=== PATIENT | female | born 1985 | race Caucasian/White ===

== ENCOUNTER → 2017-04-13 18:53 | Outpatient (CLI) | payer BC, SELFPAY ==
[2017-04-13 20:52] LABS: Group B Strep DNA By PCR Negative (Negative); Internal Control PASS; Probe Check PASS; Specimen Processing Control PASS
== END ==
PROVIDERS: Visit Provider Obstetrics & Gynecology
DX: Z34.03 Encounter for supervision of normal first pregnancy, third trimester (principal)
CPT/HCPCS: 87081; 87653

== ENCOUNTER → 2017-04-27 16:10 | Outpatient (CLI) | payer BC, SELFPAY | PROVIDERS: Visit Provider Nurse Practitioner Women's Health | DX: Z34.03 Encounter for supervision of normal first pregnancy, third trimester (principal); Z3A.00 Weeks of gestation of pregnancy not specified | CPT/HCPCS: 87086 ==

== ENCOUNTER 2017-04-29 02:40 | Inpatient (IN) | payer BC, SELFPAY ==
[2017-04-29 03:24] VITALS: BMI 31.5
[2017-04-29 04:10] LABS: Hematocrit 34.9 % (37-47); Hemoglobin 11.7 g/dl (12.0-15.0); Mean Corp Hgb Conc 33.5 g/gl (32-36); Mean Corpuscular Volume 89.5 fL (81-99); Mean Platelet Vol. 10.4 fl (6.2-12.0); Platelet Count 247 K/mm3 (150-450); RBC Distribution Width CV 13.4 % (11.6-14.6); RBC Distribution Width SD 43.1 fl (35.1-43.9); White Blood Count 10.5 K/mm3 (4.4-11.0)
[2017-04-29 04:21] LABS: Scan Indicated on CBC? Y/N NO
[2017-04-29] MEDS: Lactated Ringers 1,000 ML 50 ML IV ×5 (06:56→20:12)
--- NOTE | 2017-04-29 10:58 | PCM.HP.OB ---
- Problem List (1) Active labor at term Status: Acute History Date of Admission: 04/29/17 Gestational age: 38w1d History of this : 31 yo @ 38w1d presents IAL with SROM clear fluid 2 cm dilated Pertinent Past Medical History: asthma PSH: negative Allergies clindamycin Allergy (Mild, Verified 04/29/17 03:17) Swelling swollen, itchy eyes Current Medications Acetaminophen (Tylenol) 325 - 650 mg PO Q4H PRN PRN PRN Reason: PAIN OR FEVER >100.4F Al Hydroxide/Mg Hydroxide (Mylanta Ii) 15 - 30 ml PO Q4H PRN PRN PRN Reason: INDIGESTION Citric Acid/Sodium Citrate (Bicitra) 30 ml PO UD PRN Lactated Ringer's () 1,000 mls @ 50 mls/hr IV .Q20H [facility] Last Admin: 04/29/17 07:57 Dose: 50 mls/hr Oxytocin/Sodium Chloride () 30 units in 500 mls @ 1 mls/hr IV .Q500H [facility] Naloxone HCl 4 mg/ Dextrose 504 mls @ 0 mls/hr IV PRN PRN; Protocol PRN Reason: TO MAINTAIN RR>10 Nalbuphine HCl (Nubain) 5 - 10 mg IV Q3H PRN PRN PRN Reason: PAIN (4-10/10) Nalbuphine HCl (Nubain) 5 mg IV Q3H PRN PRN Reason: ITCHING Stop: 04/30/17 10:32 Naloxone HCl (Narcan) 0.2 mg IV Q1M PRN PRN Reason: RR<10 AND PT UNRESPONSIVE Stop: 04/30/17 10:32 Ondansetron HCl (Zofran) 4 mg IV Q8H PRN PRN PRN Reason: NAUSEA Promethazine HCl (Phenergan (Ll)) 6.25 - 12.5 mg IV Q4H PRN PRN; Protocol PRN Reason: IF NAUSEA PERSISTS Sodium Chloride () 5 - 15 ml IV UD [facility] Smoking Status: Never smoker Alcohol: None Drug Use: none Number of Fetus(es): 1 - 120 moderate variability reactive no decels Review of Systems Constitutional: Denies: Chills, Fever, Weight Change HEENT: Denies: Head Aches, Sinus Congestion, Sinus Drainage Cardiovascular: Denies: Chest Pain, Palpitations Respiratory: Denies: Cough, Shortness of breath at rest, Sputum production Gastrointestinal: Reports: Abdominal Pain, Nausea. Denies: Vomiting Genitourinary: Denies: Dysuria Gynecological: Reports: Vaginal discharge Musculoskeletal: Denies: Joint Pain, Joint Tenderness Skin: Denies: Rash, Wounds Neurological: Denies: Numbness, Tingling, Focal weakness Psychiatric: Denies: Anxiety, Depression, Homicidal Ideations, Suicidal Ideations Hematologic/ Lymphatic: Denies: Easy Bruising, Easy Bleeding Physical Exam General: Alert, Oriented x3, No apparent distress Cardiovascular: Regular rate Lungs: Normal air movement Abdomen: Soft, Gravid, Appropriate for Gestational Age Extremities:: No edema Estimated gestational size: Appropriate for gestational size Presentation: Cephalic Cervix Dilation (cm): 2 Station: -2 Effacement (%): 70 Assessment/Plan Active and Suspected Problems (Last Reviewed 04/27/17 @ 08:38 by Monalisa Hendrix) Active labor at term (Acute) 31 yo 38w1d IAL SROM active labor expectant management gbs neg
--- NOTE | 2017-04-29 11:01 | HP.PCM_ITS ---
- Problem List (1) Active labor at term Status: Acute History Date of Admission: 04/29/17 Gestational age: 38w1d History of this : 31 yo @ 38w1d presents IAL with SROM clear fluid 2 cm dilated Pertinent Past Medical History: asthma PSH: negative Allergies clindamycin Allergy (Mild, Verified 04/29/17 03:17) Swelling swollen, itchy eyes Current Medications Acetaminophen (Tylenol) 325 - 650 mg PO Q4H PRN PRN PRN Reason: PAIN OR FEVER >100.4F Al Hydroxide/Mg Hydroxide (Mylanta Ii) 15 - 30 ml PO Q4H PRN PRN PRN Reason: INDIGESTION Citric Acid/Sodium Citrate (Bicitra) 30 ml PO UD PRN Lactated Ringer's () 1,000 mls @ 50 mls/hr IV .Q20H [facility] Last Admin: 04/29/17 07:57 Dose: 50 mls/hr Oxytocin/Sodium Chloride () 30 units in 500 mls @ 1 mls/hr IV .Q500H [facility] Naloxone HCl 4 mg/ Dextrose 504 mls @ 0 mls/hr IV PRN PRN; Protocol PRN Reason: TO MAINTAIN RR>10 Nalbuphine HCl (Nubain) 5 - 10 mg IV Q3H PRN PRN PRN Reason: PAIN (4-10/10) Nalbuphine HCl (Nubain) 5 mg IV Q3H PRN PRN Reason: ITCHING Stop: 04/30/17 10:32 Naloxone HCl (Narcan) 0.2 mg IV Q1M PRN PRN Reason: RR<10 AND PT UNRESPONSIVE Stop: 04/30/17 10:32 Ondansetron HCl (Zofran) 4 mg IV Q8H PRN PRN PRN Reason: NAUSEA Promethazine HCl (Phenergan (Ll)) 6.25 - 12.5 mg IV Q4H PRN PRN; Protocol PRN Reason: IF NAUSEA PERSISTS Sodium Chloride () 5 - 15 ml IV UD [facility] Smoking Status: Never smoker Alcohol: None Drug Use: none Number of Fetus(es): 1 - 120 moderate variability reactive no decels Review of Systems Constitutional: Denies: Chills, Fever, Weight Change HEENT: Denies: Head Aches, Sinus Congestion, Sinus Drainage Cardiovascular: Denies: Chest Pain, Palpitations Respiratory: Denies: Cough, Shortness of breath at rest, Sputum production Gastrointestinal: Reports: Abdominal Pain, Nausea. Denies: Vomiting Genitourinary: Denies: Dysuria Gynecological: Reports: Vaginal discharge Musculoskeletal: Denies: Joint Pain, Joint Tenderness Skin: Denies: Rash, Wounds Neurological: Denies: Numbness, Tingling, Focal weakness Psychiatric: Denies: Anxiety, Depression, Homicidal Ideations, Suicidal Ideations Hematologic/ Lymphatic: Denies: Easy Bruising, Easy Bleeding Physical Exam General: Alert, Oriented x3, No apparent distress Cardiovascular: Regular rate Lungs: Normal air movement Abdomen: Soft, Gravid, Appropriate for Gestational Age Extremities:: No edema Estimated gestational size: Appropriate for gestational size Presentation: Cephalic Cervix Dilation (cm): 2 Station: -2 Effacement (%): 70 Assessment/Plan Active and Suspected Problems (Last Reviewed 04/27/17 @ 08:38 by Monalisa Hendrix) Active labor at term (Acute) 31 yo 38w1d IAL SROM active labor expectant management gbs neg
--- NOTE | 2017-04-29 11:02 | PCM.PN.BLA ---
Progress Note fhts 120s moderate variability isoolated late decels overall reactive and reassuring. toco q 4-5 start pitocin soon due to arrest of dilation 5 cm.
[2017-04-29] MEDS: Oxytocin 30 units/NS 500 ml 30 UNITS/500 ML IV.SOLN IV (11:45)
--- NOTE | 2017-04-29 12:04 | PCM.PN.BLA ---
Progress Note fht decel x 8 minutes to the 70s with intermittent coming up to 100s. positive scalp stimulation. 120-130 minimal variability no decels now. continue expectant management
[2017-04-29] MEDS: Ondansetron 4 MG/2 ML Vial IV (15:30)
[2017-04-29] MEDS: Mag Hydrox/Al Hydrox/Simeth 30 ML UDC PO (22:05)
[2017-04-30] MEDS: Lactated Ringers 1,000 ML 50 ML IV (01:21)
[2017-04-30] MEDS: Ondansetron 4 MG/2 ML Vial IV (01:56)
[2017-04-30] MEDS: Acetaminophen 325 MG Tablet PO (02:04)
[2017-04-30] MEDS: Oxytocin 30 units/NS 500 ml 30 UNITS/500 ML IV.SOLN 334 UNITS IV (05:26)
--- NOTE | 2017-04-30 05:37 | PCM.OB.VAG ---
- Problem List (1) Active labor at term Status: Acute (2) Vaginal delivery Status: Acute Vaginal Delivery Maternal Presentation: Spontaneous Rupture of Membranes 31 yo 38w1d SROM clear fluid Amniotic Membrane Rupture Type: Spontaneous at home Amniotic Fluid Description: Clear Gestational age: 38w2d Date of Procedure: 04/30/17 Pre-Operative Diagnosis: srom Post-Operative Diagnosis: same Surgery/ Procedure Performed: Spontaneous Vaginal Delivery Type of Anesthesia: Epidural Description of Procedure: Patient began pushing and delivered the head in the BRETT presentation. The head was delivered atraumatically . The anterior and posterior shoulders delivered without complication followed by the rest of the infant and the infant was placed on the maternal abdomen. Delayed cord clamping was employed for approximately 60 seconds. Cord was clamped and cut and gentle traction was applied to the cord and the placenta delivered spontaneously immediately following it was noted to be intact with three-vessel cord. The perineum and vagina were inspected and noted to have a shallow 1st degree laceration that difdn't require repair. EBL was 400 cc. mild atony remedied with pitocin and methergine. Patient and infant tolerated delivery well. Presentation: BRETT Placental Delivery Description: Spontaneous Placenta Disposition: [facility] Cord Vessel Description: 3 Vessels Cord Entanglement: None Estimated Blood Loss: 400 A gender: Male Episiotomy Description: None Laceration: Perineal Extension/lac, 1st degree Medications given after delivery: IV Pitocin, IM Methergin Complications: None
[2017-04-30] MEDS: 0.9% Saline Lock 10 ML Syringe IV (06:00)
[2017-04-30] MEDS: Oxytocin 30 units/NS 500 ml 30 UNITS/500 ML IV.SOLN 167 UNITS IV (06:00)
[2017-04-30] MEDS: Naproxen 250 MG Tablet PO ×2 (10:00→22:59)
[2017-04-30 11:36] VITALS: BP 113/71; PULSE 89; RESP 16; TEMP 36.8; O2SAT 96
[2017-04-30 15:30] VITALS: BP 109/67; PULSE 67; RESP 16; TEMP 36.4; O2SAT 97
[2017-04-30 19:45] VITALS: BP 128/77; PULSE 84; RESP 16; TEMP 36.3; O2SAT 96
[2017-04-30 23:01] VITALS: BP 126/75; PULSE 88; RESP 16; TEMP 36.3; O2SAT 98
[2017-05-01 05:00] VITALS: BP 127/85; PULSE 78; RESP 18; TEMP 36.9; O2SAT 98
--- NOTE | 2017-05-01 07:56 | PCM.PN.OB ---
Patient Problems: Active and Suspected Problems (Last Reviewed 04/27/17 @ 08:38 by Monalisa Hendrix) Active labor at term (Acute) Vaginal delivery (Acute) Subjective: Doing well. No SOB, chest pain. No issues with bowel, bladder habits. Uterus 2 below umbilicus. Normal lochia. - Physical Exam General: Alert, Oriented x3, Cooperative Abdomen: - - Fundus firm and 2 below. Abdomen soft. Vital Signs Temp Pulse Resp BP Pulse Ox 98.4 F 78 18 127/85 H 98 05/01/17 05:00 05/01/17 05:00 05/01/17 05:00 05/01/17 05:00 05/01/17 05:00 Oxygen Delivery Method Room Air Weight: 189 lb 6.033 oz Body Mass Index (BMI) 31.5 Intake and Output for Last 24 Hours 04/29/17 04/30/17 05/01/17 23:59 23:59 23:59 Intake Total 4170 / 4170 3198 / 3198 Output Total 1000 / 1000 1800 / 1800 Balance 3170 / 3170 1398 / 1398 Assessment/Plan Active and Suspected Problems (Last Reviewed 04/27/17 @ 08:38 by Monalisa Hendrix) Active labor at term (Acute) Vaginal delivery (Acute) Status post . PPD 1. Routine PP care,
[2017-05-01 08:00] VITALS: BP 138/60; PULSE 76; RESP 16; TEMP 36.3; O2SAT 96
[2017-05-01] MEDS: Naproxen 250 MG Tablet PO ×2 (09:39→20:25)
[2017-05-01] MEDS: Dibucaine 30 GM Tube 1 APPLIC TOPICAL (09:40)
[2017-05-01 14:45] VITALS: BP 112/72; PULSE 76; RESP 16; TEMP 36.4; O2SAT 97
[2017-05-01] MEDS: Acetaminophen 500 MG Tablet 1000 MG PO (14:47)
[2017-05-01 21:20] VITALS: BP 102/71; PULSE 72; RESP 16; TEMP 36.3
[2017-05-02] MEDS: Acetaminophen 500 MG Tablet 1000 MG PO (01:44)
[2017-05-02 02:00] VITALS: BP 98/72; PULSE 80; RESP 16; TEMP 36.4
[2017-05-02 07:48] VITALS: BP 115/79; PULSE 78; RESP 16; TEMP 36.4; O2SAT 99
--- NOTE | 2017-05-02 09:33 | PCM.PN.OB ---
Patient Problems: Active and Suspected Problems (Last Reviewed 04/27/17 @ 08:38 by Monalisa Hendrix) Active labor at term (Acute) Vaginal delivery (Acute) Subjective: pain controlled n oCP SOB N V lochia WNL well - Physical Exam General: Alert, Oriented x3 Abdomen: - - FF 2 below U Vital Signs Temp Pulse Resp BP Pulse Ox 97.6 F L 78 16 115/79 99 05/02/17 07:48 05/02/17 07:48 05/02/17 07:48 05/02/17 07:48 05/02/17 07:48 Oxygen Delivery Method Room Air Weight: 189 lb 6.033 oz Body Mass Index (BMI) 31.5 Intake and Output for Last 24 Hours 04/30/17 05/01/17 05/02/17 23:59 23:59 23:59 Intake Total 3198 / 3198 Output Total 1800 / 1800 Balance 1398 / 1398 Assessment/Plan Active and Suspected Problems (Last Reviewed 04/27/17 @ 08:38 by Monalisa Hendrix) Active labor at term (Acute) Vaginal delivery (Acute) s/p PPD 2 , doing well routine care dc home today
--- NOTE | 2017-05-02 09:35 | PCM.DCVAG ---
Discharge Diet: No Restrictions Discharge Activity: Return to Normal Activity, May not drive while taking narcotic pain medications., May Shower May resume sexual activity in: 4-6 weeks Call your doctor if your incision/area has: Continuous Slow Oozing, Sudden Increased Bleeding, Increased Pain/ Swelling, Increased Redness, Foul Smelling Discharge Additional Instructions: If you experience any of the following, contact your healthcare provider. Bleeding that soaks a pad every hour for 2 hours Fever 100.4 or higher Unrelieved incision or abdominal pain Swelling, redness, discharge or bleeding from your incision or episiotomy site Your incision begins to separate Problems urinating (including inability to urinate or burning while urinating). Visual changes Severe headache Flu-like symptoms Pain or redness in one of both of your breasts Pain, warmth, tenderness or swelling in your legs, especially the calf area Frequent nausea and vomiting Symptoms of depression or anxiety If you experience any of the following, call 911 or go to the nearest Emergency Room. Chest pain Problems breathing Seizure activity Partial or complete paralysis of a body part, slurred speech, weakness or drooping of the face, or a sudden inability to walk or hold your balance Allergies/Adverse Reactions: Allergies clindamycin Allergy (Mild, Verified 04/29/17 03:17) Swelling swollen, itchy eyes Medications to take at Discharge albuterol sulfate HFA 90 mcg/actuation aerosol inhaler 1 puff INHALATION Q6H 02/13/17 cyanocobalamin (vit B-12) 50 mcg lozenges 50 mcg PO QDAY 02/13/17 magnesium oxide 400 mg capsule 400 mg PO QDAY cap 02/13/17 vitamin,calcium,gfswqbao-edcx-anyjd acid tablet 1 tab PO QDAY 02/13/17 pyridoxine (vitamin B6) 250 mg tablet 250 mg PO QDAY 02/13/17 calcium carbonate 500 mg calcium (1,250 mg) chewable tablet 500 mg PO BID tab 02/14/17 Please Follow Up With: Hillary Patricia MD - [phone] When: Call to make an appointment with your doctor in 6 weeks. If you had elevated Blood pressure or 4th degree laceration you will need to be seen in 2 weeks. Primary Care Physician: [facility] Doctor,Out of [Primary Care Provider] -
--- NOTE | 2017-05-02 09:37 | DCINST_ITS ---
Discharge Diet: No Restrictions Discharge Activity: Return to Normal Activity, May not drive while taking narcotic pain medications., May Shower May resume sexual activity in: 4-6 weeks Call your doctor if your incision/area has: Continuous Slow Oozing, Sudden Increased Bleeding, Increased Pain/ Swelling, Increased Redness, Foul Smelling Discharge Additional Instructions: If you experience any of the following, contact your healthcare provider. * Bleeding that soaks a pad every hour for 2 hours * Fever 100.4 or higher * Unrelieved incision or abdominal pain * Swelling, redness, discharge or bleeding from your incision or episiotomy site * Your incision begins to separate * Problems urinating (including inability to urinate or burning while urinating) . * Visual changes * Severe headache * Flu-like symptoms * Pain or redness in one of both of your breasts * Pain, warmth, tenderness or swelling in your legs, especially the calf area * Frequent nausea and vomiting * Symptoms of depression or anxiety If you experience any of the following, call 911 or go to the nearest Emergency Room. * Chest pain * Problems breathing * Seizure activity * Partial or complete paralysis of a body part, slurred speech, weakness or drooping of the face, or a sudden inability to walk or hold your balance Allergies/Adverse Reactions: Allergies clindamycin Allergy (Mild, Verified 04/29/17 03:17) Swelling swollen, itchy eyes Medications to take at Discharge albuterol sulfate HFA 90 mcg/actuation aerosol inhaler 1 puff INHALATION Q6H 02/18 cyanocobalamin (vit B-12) 50 mcg lozenges 50 mcg PO QDAY 02/13/17 magnesium oxide 400 mg capsule 400 mg PO QDAY cap 02/13/17 vitamin,calcium,pwohnojf-odhh-gxqbn acid tablet 1 tab PO QDAY 02/13/17 pyridoxine (vitamin B6) 250 mg tablet 250 mg PO QDAY 02/13/17 calcium carbonate 500 mg calcium (1,250 mg) chewable tablet 500 mg PO BID tab 02/14/17 Please Follow Up With: Hillary Patricia MD - [phone] When: Call to make an appointment with your doctor in 6 weeks. If you had elevated Blood pressure or 4th degree laceration you will need to be seen in 2 weeks. Primary Care Physician: [facility] Doctor,Out of [Primary Care Provider] -
== END 2017-05-02 11:45 | disposition home or self-care (01) | DRG 775 ==
PROVIDERS: Admitting Provider Obstetrics & Gynecology; Visit Provider Obstetrics & Gynecology
DX: O62.0 Primary inadequate contractions (principal); O76 Abnormality in fetal heart rate and rhythm complicating labor and delivery; O75.89 Other specified complications of labor and delivery; O99.52 Diseases of the respiratory system complicating childbirth; J45.909 Unspecified asthma, uncomplicated; Z79.899 Other long term (current) drug therapy; Z3A.38 38 weeks gestation of pregnancy; Z37.0 Single live birth
CPT/HCPCS: 59025; 59050; 85027; 86850; 86900; 99218; J7120; A4216; G0378; J2405

== ENCOUNTER 2017-05-08 14:56 | Outpatient (CLI) | payer BC, SELFPAY | END 2017-05-08 16:15 | disposition home or self-care (01) | LOC: WPOUT 15:01 → WP 15:02 | PROVIDERS: Family Provider Pediatrics; PCP Pediatrics; Visit Provider Pediatrics | DX: Z39.1 Encounter for care and examination of lactating mother (principal) | CPT/HCPCS: 96152 ==

== ENCOUNTER → 2018-07-08 12:37 | Outpatient (CLI) | payer BC, SELFPAY ==
[2018-07-08 10:59] VITALS: BMI 30.9
[2018-07-10 11:01] LABS: HPV APTIMA, High Risk Negative (Negative)
== END ==
PROVIDERS: Referring Provider Obstetrics & Gynecology; Visit Provider Obstetrics & Gynecology
DX: Z12.4 Encounter for screening for malignant neoplasm of cervix (principal)
CPT/HCPCS: 87624; 88175; G0145

== ENCOUNTER → 2018-10-01 10:02 | Outpatient (CLI) | payer BC, SELFPAY ==
[2018-07-08 10:59] VITALS: BMI 30.9
== END ==
PROVIDERS: Family Provider Nurse Practitioner Family; PCP Nurse Practitioner Family; Referring Provider Obstetrics & Gynecology; Visit Provider Obstetrics & Gynecology
DX: N91.2 Amenorrhea, unspecified (principal)
CPT/HCPCS: 36415; 84702

== ENCOUNTER → 2018-10-03 08:17 | Outpatient (CLI) | payer BC, SELFPAY ==
[2018-07-08 10:59] VITALS: BMI 30.9
[2018-10-03 10:47] LABS: hCG Titer Quant., Serum 46207 mIU/mL (1-3)
== END ==
PROVIDERS: Family Provider Nurse Practitioner Family; PCP Nurse Practitioner Family; Referring Provider Obstetrics & Gynecology; Visit Provider Obstetrics & Gynecology
DX: N91.2 Amenorrhea, unspecified (principal)
CPT/HCPCS: 36415; 84702

== ENCOUNTER → 2018-10-14 17:18 | Outpatient (CLI) | payer BC, SELFPAY ==
[2018-10-14 17:18] VITALS: BMI 27.1
[2018-10-14 20:35] LABS: Chlamydia Trachomatis by PCR Negative (Negative); Neisserai gonorrhoeae by PCR Negative (Negative); Probe Check PASS; Sample Adequacy Control PASS; Specimen Processing Control PASS
== END ==
PROVIDERS: Family Provider Nurse Practitioner Family; PCP Nurse Practitioner Family; Referring Provider Nurse Practitioner Women's Health; Visit Provider Nurse Practitioner Women's Health
DX: Z34.90 Encounter for supervision of normal pregnancy, unspecified, unspecified trimester (principal); Z3A.00 Weeks of gestation of pregnancy not specified
CPT/HCPCS: 87086; 87491; 87591

== ENCOUNTER → 2018-11-15 11:19 | Outpatient (CLI) | payer BC, SELFPAY ==
[2018-11-15 11:06] VITALS: BMI 27.1
[2018-11-15 11:44] LABS: Absolute Lymphocyte Count 1.91 X10^3/uL (0.83-4.51); Absolute Neutrophil Count 3.5 X10^3/uL (2.0-7.7); Basophil# 0.05 X10^3/uL; Basophil% 0.8 % (0-1); Eosinophil# 0.19 X10^3/uL; Eosinophils% 3.2 % (0-5); Hematocrit 43.2 % (37-47); Hemoglobin 14.4 g/dL (12.0-15.0); Lymphocyte # 1.91 X10^3/ul (4.0); Lymphocyte % 31.9 % (19-41); Mean Corp Hgb Conc 33.3 g/dL (32-36); Mean Platelet Vol. 9.1 fl (6.2-12.0); Monocyte# 0.35 X10^3/uL; Monocyte% 5.8 % (0-10); NRBC Flagged by Analyzer 0 % (0-5); Neutrophil # 3.47 X10^3/uL (2.7-7.7); Platelet Count 274 K/mm3 (150-450); RBC Distribution Width CV 12.4 % (11.6-14.6); RBC Distribution Width SD 40.9 fl (35.1-43.9)
[2018-11-15 14:01] LABS: HIV - WCH Non-Reactive (Nonreactive); Hepatitis B Surface Antigen Non-Reactive (Nonreactive)
[2018-11-22 02:39] LABS: Rapid Plasmin Reagin (RPR) NONREACTIVE (NONREACTIVE)
== END ==
PROVIDERS: Nurse Practitioner Women's Health; Family Provider Nurse Practitioner Family; PCP Nurse Practitioner Family; Referring Provider Obstetrics & Gynecology; Visit Provider Obstetrics & Gynecology
DX: Z34.82 Encounter for supervision of other normal pregnancy, second trimester (principal); Z3A.00 Weeks of gestation of pregnancy not specified
CPT/HCPCS: 36415; 85025; 86592; 86703; 86762; 86850; 86900; 86901; 87340

== ENCOUNTER → 2019-03-13 14:42 | Outpatient (CLI) | payer BC, SELFPAY ==
[2019-02-06 15:20] VITALS: BMI 27.1
[2019-03-13 15:12] LABS: Basophil# 0.03 X10^3/uL; Basophil% 0.3 % (0-1); Eosinophil# 0.13 X10^3/uL; Eosinophils% 1.5 % (0-5); Hematocrit 34.3 % (37-47); Hemoglobin 11.4 g/dL (12.0-15.0); Lymphocyte % 23.4 % (19-41); Mean Corp Hgb Conc 33.2 g/dL (32-36); Mean Corpuscular Hgb 29.9 pg (27.0-32.0); Mean Platelet Vol. 9.7 fl (6.2-12.0); Monocyte# 0.65 X10^3/uL; Monocyte% 7.3 % (0-10); NRBC Flagged by Analyzer 0 % (0-5); Neutrophil # 6.01 X10^3/uL (2.7-7.7); Neutrophil % 67.1 % (47-70); Platelet Count 225 K/mm3 (150-450); Red Blood Count 3.81 M/mm3 (4.2-5.4)
[2019-03-13 15:20] LABS: Glucose Challenge Gest 1H 50g 143 mg/dL (70-140)
== END ==
PROVIDERS: Nurse Practitioner Women's Health; Family Provider Nurse Practitioner Family; PCP Nurse Practitioner Family; Visit Provider Obstetrics & Gynecology
DX: Z34.80 Encounter for supervision of other normal pregnancy, unspecified trimester (principal)
CPT/HCPCS: 36415; 82950; 85025

== ENCOUNTER → 2019-03-24 09:35 | Outpatient (CLI) | payer BC, SELFPAY ==
[2019-03-13 15:19] VITALS: BMI 27.1
[2019-03-24 11:13] LABS: Glucose GTT-Gestation. Fasting 72 mg/dL (<105)
[2019-03-24 11:22] LABS: Glucose GTT-Gestational 1 Hr 135 mg/dL (<190)
[2019-03-24 13:36] LABS: Glucose GTT-Gestational 2 Hr 111 mg/dL (<165)
[2019-03-24 13:37] LABS: Glucose GTT-Gestational 3 Hr 94 L (<145)
== END ==
PROVIDERS: Family Provider Nurse Practitioner Family; PCP Nurse Practitioner Family; Referring Provider Obstetrics & Gynecology; Visit Provider Obstetrics & Gynecology
DX: O99.810 Abnormal glucose complicating pregnancy (principal); Z3A.00 Weeks of gestation of pregnancy not specified
CPT/HCPCS: 36415; 82951; 82952

== ENCOUNTER → 2019-05-01 | Outpatient (CLI) | payer BC, SELFPAY ==
[2019-05-01 11:33] VITALS: BMI 27.1
== END | disposition home or self-care (01) ==
LOC: LABSPEC 15:12
PROVIDERS: PCP Nurse Practitioner Family; Referring Provider Nurse Practitioner Women's Health; Visit Provider Nurse Practitioner Women's Health
DX: Z34.80 Encounter for supervision of other normal pregnancy, unspecified trimester (principal)
CPT/HCPCS: 87081

== ENCOUNTER 2019-06-01 01:50 | Inpatient (IN) | payer BC, SELFPAY ==
[2019-03-13 15:19] VITALS: BMI 27.1
[2019-05-29 15:23] VITALS: BMI 31.4
[2019-06-01] VITALS (45 sets, daily range): BP systolic 91–158; BP diastolic 51–116; PULSE 62–133; RESP 14–16; TEMP 36.2–36.9; O2SAT 89–100; BMI 30.7
[2019-06-01] MEDS: Lactated Ringers 500 ML 999 ML IV ×3 (02:10→07:41)
[2019-06-01 02:25] LABS: Absolute Lymphocyte Count 4.75 X10^3/uL (0.83-4.51); Absolute Neutrophil Count 9.1 X10^3/uL (2.0-7.7); Basophil# 0.04 X10^3/uL; Basophil% 0.3 % (0-1); Eosinophil# 0.15 X10^3/uL; Hematocrit 37.5 % (37-47); Hemoglobin 12.7 g/dL (12.0-15.0); Lymphocyte # 4.75 X10^3/ul (4.0); Lymphocyte % 31.4 % (19-41); Mean Corp Hgb Conc 33.9 g/dL (32-36); Mean Corpuscular Hgb 30.2 pg (27.0-32.0); Mean Corpuscular Volume 89.1 fL (81-99); Monocyte# 1.04 X10^3/uL; Monocyte% 6.9 % (0-10); NRBC Flagged by Analyzer 0 % (0-5); Neutrophil # 9.05 X10^3/uL (2.7-7.7); Neutrophil % 59.7 % (47-70); Platelet Count 240 K/mm3 (150-450); RBC Distribution Width CV 14.1 % (11.6-14.6); RBC Distribution Width SD 44.5 fl (35.1-43.9); Red Blood Count 4.21 M/mm3 (4.2-5.4); White Blood Count 15.1 K/mm3 (4.4-11.0)
[2019-06-01] MEDS: Lactated Ringers 1,000 ML 200 ML IV (02:41)
[2019-06-01] MEDS: fentaNYL-bupivacaine (epidural) 100 ML BAG EPIDURAL (02:58)
--- NOTE | 2019-06-01 03:08 | PCM.HP.OB ---
- Problem List (1) Active labor at term Status: Acute (2) SROM (spontaneous rupture of membranes) Status: Acute (3) Abnormal glucose tolerance affecting , antepartum Status: Acute Comment: Normal 3hr GTT (4) Supervision of other normal Status: Acute Comment: PRR ERICH: 05/25/19 [facility]: Pedro Spouse: Paul (5) Status: Acute Qualifiers: Comment: declines carrier and AFP. NIPT low risk. Anatomy US normal. History Date of Admission: 04/29/17 Final ERICH: 05/25/19 Gestational age: 41 Weeks and 0 Days History of this : This is a 33 year-old, , at 41 weeks gestational age presents IAL 5 cm and SROM clear fluid, regular contractions. Medical History: Medical History (Last Reviewed 05/29/19 @ 15:21 by Monalisa Hendrix) Asthma J45.909 Hx of migraines Z86.69 Seasonal allergies J30.2 Allergies clindamycin Allergy (Mild, Verified 05/29/19 15:21) Swelling swollen, itchy eyes Home Medications: Home Medications albuterol sulfate 90 mcg/actuation aerosol inhaler 1 puff INHALATION Q6H 02/13/17 Vits [Prenatabs FA ] 1 tab PO DAILY 06/01/19 Smoking Status: Never smoker Alcohol: None Number of Fetus(es): 1 NST - FHR Rate Baby A Baseline: 120 Variability:: Absent - 120 Accelerations:: 15 x 15 Decelerations:: Variable NST Reactive:: Yes FHR Category:: Category II Uterine Activity:: q 2-3 History Past Pregnancies: Past Pregnancies previous Labs: Mom's Problem List Problem Status Onset Code Active labor at term Acute SROM (spontaneous rupture of membranes) Acute Mom's Labs & Results 06/01/19 06/01/19 02:10 02:10 WBC 15.1 H RBC 4.21 Hgb 12.7 Hct 37.5 MCV 89.1 MCH 30.2 MCHC 33.9 RDW Std Deviation 44.5 H RDW Coeff of Lex 14.1 Plt Count 240 MPV 10.0 Immature Gran % (Auto) 0.700 Neut % (Auto) 59.7 Lymph % (Auto) 31.4 Sanders % (Auto) 6.9 Eos % (Auto) 1.0 Baso % (Auto) 0.3 Absolute Neuts (auto) 9.1 H Absolute Lymphs (auto) 4.75 H Nucleated RBC % 0 Blood Type A POSITIVE Antibody Screen NEGATIVE Course Did the patient receive Yes care? Labs Blood Type: A RH: POSITIVE RPR/VDRL/Syphilis Nonreactive Rubella status Immune HbSAg Negative Date Done: 11/16/19 Chlamydia Negative Gonorrhea Negative HIV/AIDS Non-Reactive Group B Strep: Negative Current Obstetrical History Gestational Diabetes No Incompetent Cervix No Infertility No IUGR No Macrosomia No Hypertension/Pre-eclampsia No Placenta Previa/Abruption No PTL/PROM No Uterine anomaly No Oligohydramnios No Polyhydramnios No Multiple gestation No Past Medical History Asthma Yes Diabetes No Hypertension No Heart disease No Mitral valve prolapse No Neurologic/Seizure disorder/ No Migraines Kidney disease No Liver disease No Varicosities No Clotting disorders/Hx of DVT No Thyroid Dysfunction No Other medical diseases No Psychiatric disorders No Major trauma No Abnormal PAP smear No Sleep apnea No Mammogram in the last 2 years No Social History Marital Status: Alleged father Paul Hx Smoking No Smoking Status Never smoker Expected Infant Delivery Method: Spontaneous Vaginal Review of Systems Constitutional: Denies: Fever, Malaise Eyes: Denies: Blurred vision, Vision Change HEENT: Denies: Head Aches, Visual Changes Cardiovascular: Denies: Chest Pain, Palpitations Respiratory: Denies: Cough, Shortness of Breath, Wheezing Gastrointestinal: Denies: Abdominal Pain, Diarrhea, Nausea, Vomiting Genitourinary: Denies: Dysuria, Hematuria Musculoskeletal: Denies: Joint Pain, Muscle pain Skin: Denies: Lesions, Rash Neurological: Denies: Blurred vision, Focal weakness, Headaches Psychiatric: Denies: Anxiety, Depression Endocrine: Denies: Heat/ Cold Intolerance Hematologic/ Lymphatic: Denies: Easy Bruising, Easy Bleeding Physical Exam Vitals: Vital Signs Temp Pulse BP Pulse Ox 97.6 F L 88 124/60 H 100 06/01/19 01:54 06/01/19 03:05 06/01/19 03:04 06/01/19 03:05 General: Alert, Cooperative, No apparent distress HEENT: Atraumatic, Normocephalic. Negative for: Thyromegaly, Lymphadenopathy Cardiovascular: Regular rate Lungs: Normal air movement Abdomen: Soft, Non Tender, Gravid Neurological: Deep Tendon Reflexes 2+/4 and Symmetrical, Neuro grossly intact. 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 Negative for: Vulvar lesions Estimated gestational size: Appropriate for gestational size Presentation: Cephalic Cervix Dilation (cm): 5 Station: -1 Effacement (%): 90 Assessment/Plan All Active Problems (Last Reviewed 05/29/19 @ 15:21 by Monalisa Hendrix) Active labor at term (Acute) SROM (spontaneous rupture of membranes) (Acute) Abnormal glucose tolerance affecting , antepartum (Acute) Supervision of other normal (Acute) (Acute) Active labor at term (Resolved) Asthma affecting , antepartum (Resolved) Supervision of normal first (Resolved) Vaginal delivery (Resolved) This is a 33 year-old, at 41 weeks gestational age presents IAL. Patient presents IAL, plan expectant management for , Pain management: Plans epidural. GBS negative Management of any complications: None I have reviewed the [facility] and made any clinically relevant updates.
--- NOTE | 2019-06-01 07:45 | PCM.OPRPT ---
Problem List (1) Active labor at term Status: Acute (2) SROM (spontaneous rupture of membranes) Status: Acute (3) Abnormal glucose tolerance affecting , antepartum Status: Acute Comment: Normal 3hr GTT (4) Supervision of other normal Status: Acute Comment: PRR ERICH: 05/25/19 [facility]: Pedro Spouse: Paul (5) Status: Acute Qualifiers: Comment: declines carrier and AFP. NIPT low risk. Anatomy US normal. Vaginal Delivery Maternal Presentation: Active Labor, Spontaneous Rupture of Membranes ial 4-5 cm Amniotic Membrane Rupture Type: Spontaneous Amniotic Fluid Description: Clear Final ERICH: 05/25/19 Gestational age: 41 Weeks and 0 Days Date of Procedure: 06/01/19 Pre-Operative Diagnosis: ial Post-Operative Diagnosis: same Surgery/ Procedure Performed: Spontaneous Vaginal Delivery Type of Anesthesia: Epidural Description of Procedure: Patient began pushing and delivered the head in the ABILIO presentation. The head was delivered atraumatically and a loose nuchal x1 was identified and the infant was delivered through it. The anterior and posterior shoulders delivered without complication followed by the rest of the and the infant was placed on the maternal abdomen. Delayed cord clamping was employed for approximately 60 seconds. Cord was clamped and cut and gentle traction was applied to the cord and the placenta delivered spontaneously immediately following it was noted to be intact with three-vessel cord. The perineum and vagina were inspected and noted to have no laceration. EBL was 400 cc. Patient and tolerated delivery well. Presentation: ABILIO Placental Delivery Description: Spontaneous Placenta Disposition: [facility] Cord Vessel Description: 3 Vessels Estimated Blood Loss: 400 Infant A gender: Female Episiotomy Description: None Laceration: None Medications given after delivery: IV Pitocin Complications: None [facility] Codes - Urinary/Genital Urinary/Genital CPT Codes: 28639 Vaginal Delivery [facility]
[2019-06-01] MEDS: Oxytocin 30 units/NS 500 ml 30 UNITS/500 ML IV.SOLN 334 UNITS IV (08:06)
[2019-06-01] MEDS: 0.9% Saline Lock 10 ML Syringe IV (10:29)
[2019-06-01] MEDS: Prenatal Vits Tablet 1 TABLET PO (11:56)
[2019-06-01] MEDS: Acetaminophen 500 MG Tablet 1000 MG PO (16:12)
[2019-06-02] VITALS: BP 113/59; PULSE 89; RESP 16; TEMP 36.6; O2SAT 95
[2019-06-02] MEDS: Acetaminophen 500 MG Tablet 1000 MG PO (01:22)
[2019-06-02 03:30] VITALS: BP 113/62; PULSE 90; RESP 16; TEMP 36.8; O2SAT 95
--- NOTE | 2019-06-02 06:50 | PCM.PN.OB ---
Patient Problems: Active and Suspected Problems (Last Reviewed 05/29/19 @ 15:21 by Monalisa Hendrix) Active labor at term (Acute) SROM (spontaneous rupture of membranes) (Acute) Subjective: doing well no complaints pain controlled no CP SOB N V ambulating well tolerating po lochia moderate, going well - Physical Exam Vitals/I&O's: Vital Signs Temp Pulse Resp BP Pulse Ox 98.3 F 90 16 113/62 95 06/02/19 03:30 06/02/19 03:30 06/02/19 03:30 06/02/19 03:30 06/02/19 03:30 Oxygen Delivery Method Room Air Weight: 184 lb 4.903 oz Body Mass Index (BMI) 30.7 Intake and Output for Last 24 Hours 05/31/19 06/01/19 06/02/19 23:59 23:59 23:59 Intake Total 2878.18 / 2878.18 Output Total 780 / 780 Balance 2098.18 / 2098.18 General: Alert, Oriented x3 Current Medications Acetaminophen (Tylenol) 1,000 mg PO Q8H PRN PRN PRN Reason: Pain Score 1-3/10 Last Admin: 06/02/19 01:22 Dose: 1,000 mg Documented by: Albuterol Sulfate (Ventolin Aerosols) 2.5 mg INHALATION Q6H.RT PRN PRN Reason: Asthma Bisacodyl (Dulcolax) 10 mg RECTAL UD PRN PRN Reason: If no BM Dibucaine (Dibucaine) 1 applic TOPICAL TID PRN PRN; Protocol PRN Reason: Discomfort Hydrocortisone (Hytone) 1 applic TOPICAL TID PRN PRN; Protocol PRN Reason: Discomfort Methylergonovine Maleate (Methergine) 0.2 mg IM X1 PRN PRN Reason: Excess bleeding/uterine atony Naproxen (Naprosyn) 500 mg PO Q8H PRN PRN PRN Reason: Pain Score 1-3/10 Ondansetron HCl (Zofran) 4 mg IV Q4H PRN PRN PRN Reason: Nausea Oxycodone HCl (Oxyir) 5 - 10 mg PO Q4H PRN PRN PRN Reason: Pain Score 4-10/10 Multivit/Folic Acid/Iron (Prenatabs Fa) 1 tablet PO DAILY@1200 JOSE DANIEL Last Admin: 06/01/19 11:56 Dose: 1 tablet Documented by: Senna/Docusate Sodium (Senokot-S, Erna-Colace) 1 - 2 tablet PO DAILY PRN PRN PRN Reason: Constipation Simethicone (Mylicon) 80 mg PO PCHS PRN PRN Reason: Indigestion/Stomach pain Sodium Chloride () 5 - 15 ml IV UD PRN PRN Reason: SALINE FLUSH Last Admin: 06/01/19 10:29 Dose: 10 ml Documented by: Medical Necessity - Tobacco Use Smoking Status: Never smoker Assessment/Plan All Active Problems (Last Reviewed 05/29/19 @ 15:21 by Monalisa Hendrix) Active labor at term (Acute) SROM (spontaneous rupture of membranes) (Acute) Abnormal glucose tolerance affecting , antepartum (Acute) Supervision of other normal (Acute) (Acute) Active labor at term (Resolved) Asthma affecting , antepartum (Resolved) Supervision of normal first (Resolved) Vaginal delivery (Resolved) s/p PPD # 1 1. routine post delivery care 2. breast feeding- support given 3. rh positive 4. rubella immune
--- NOTE | 2019-06-02 06:51 | DCINST_ITS ---
Discharge Diet: No Restrictions Discharge Activity: Return to Normal Activity, May not drive while taking narcotic pain medications., May Shower May resume sexual activity in: 4-6 weeks Call your doctor if your incision/area has: Continuous Slow Oozing, Sudden Increased Bleeding, Increased Pain/ Swelling, Increased Redness, Foul Smelling Discharge Additional Instructions: If you experience any of the following, contact your healthcare provider. * Bleeding that soaks a pad every hour for 2 hours * Fever 100.4 or higher * Unrelieved incision or abdominal pain * Swelling, redness, discharge or bleeding from your incision or episiotomy site * Your incision begins to separate * Problems urinating (including inability to urinate or burning while urinating). * Visual changes * Severe headache * Flu-like symptoms * Pain or redness in one of both of your breasts * Pain, warmth, tenderness or swelling in your legs, especially the calf area * Frequent nausea and vomiting * Symptoms of depression or anxiety If you experience any of the following, call 911 or go to the nearest Emergency Room. * Chest pain * Problems breathing * Seizure activity * Partial or complete paralysis of a body part, slurred speech, weakness or drooping of the face, or a sudden inability to walk or hold your balance Allergies/Adverse Reactions: Allergies clindamycin Allergy (Mild, Verified 05/29/19 15:21) Swelling swollen, itchy eyes Medications to take at Discharge albuterol sulfate 90 mcg/actuation aerosol inhaler 1 puff INHALATION Q6H 02/13/17 Vits [Prenatabs FA ] 1 tab PO DAILY 06/01/19 Naproxen [Naprosyn] 250 - 500 mg PO Q8H PRN PRN #30 tab 06/02/19 The following prescriptions were given: Naproxen [Naprosyn] 250 - 500 mg PO Q8H PRN PRN #30 tab PRN Reason: MILD PAIN Transmission Status: Pending to [facility] Please Follow Up With: Hillary Patricia MD - [phone] When: Call to make an appointment with your doctor in 6 weeks. If you had elevated Blood pressure or 4th degree laceration you will need to be seen in 2 weeks. Primary Care Physician: Charu Morrison NP-C [Primary Care Provider] - Test Results: Test results from this visit will be discussed in further detail at your follow- up appointment, if applicable.
--- NOTE | 2019-06-02 06:51 | PCM.DCVAG ---
Discharge Diet: No Restrictions Discharge Activity: Return to Normal Activity, May not drive while taking narcotic pain medications., May Shower May resume sexual activity in: 4-6 weeks Call your doctor if your incision/area has: Continuous Slow Oozing, Sudden Increased Bleeding, Increased Pain/ Swelling, Increased Redness, Foul Smelling Discharge Additional Instructions: If you experience any of the following, contact your healthcare provider. Bleeding that soaks a pad every hour for 2 hours Fever 100.4 or higher Unrelieved incision or abdominal pain Swelling, redness, discharge or bleeding from your incision or episiotomy site Your incision begins to separate Problems urinating (including inability to urinate or burning while urinating). Visual changes Severe headache Flu-like symptoms Pain or redness in one of both of your breasts Pain, warmth, tenderness or swelling in your legs, especially the calf area Frequent nausea and vomiting Symptoms of depression or anxiety If you experience any of the following, call 911 or go to the nearest Emergency Room. Chest pain Problems breathing Seizure activity Partial or complete paralysis of a body part, slurred speech, weakness or drooping of the face, or a sudden inability to walk or hold your balance Allergies/Adverse Reactions: Allergies clindamycin Allergy (Mild, Verified 05/29/19 15:21) Swelling swollen, itchy eyes Medications to take at Discharge albuterol sulfate 90 mcg/actuation aerosol inhaler 1 puff INHALATION Q6H 02/13/17 Vits [Prenatabs FA ] 1 tab PO DAILY 06/01/19 Naproxen [Naprosyn] 250 - 500 mg PO Q8H PRN PRN #30 tab 06/02/19 The following prescriptions were given: Naproxen [Naprosyn] 250 - 500 mg PO Q8H PRN PRN #30 tab PRN Reason: MILD PAIN Transmission Status: Pending to [facility] Please Follow Up With: Hillary Patricia MD - [phone] When: Call to make an appointment with your doctor in 6 weeks. If you had elevated Blood pressure or 4th degree laceration you will need to be seen in 2 weeks. Primary Care Physician: Charu Morrison NP-C [Primary Care Provider] - Test Results: Test results from this visit will be discussed in further detail at your follow-up appointment, if applicable.
[2019-06-02 08:00] VITALS: BP 121/89; PULSE 88; RESP 16; TEMP 36.2
[2019-06-02] MEDS: Prenatal Vits Tablet 1 TABLET PO (08:43)
[2019-06-02] MEDS: Senna/Docusate Sodium 1 Tablet PO ×2 (08:44→08:46)
[2019-06-02] MEDS: Naproxen 250 MG Tablet 500 MG PO (08:45)
== END 2019-06-02 11:45 | disposition home or self-care (01) | DRG 807 ==
PROVIDERS: Admitting Provider Obstetrics & Gynecology; PCP Nurse Practitioner Family; Referring Provider Obstetrics & Gynecology; Visit Provider Obstetrics & Gynecology
DX: O48.0 Post-term pregnancy (principal); Z37.0 Single live birth; O76 Abnormality in fetal heart rate and rhythm complicating labor and delivery; O69.81X0 Labor and delivery complicated by cord around neck, without compression, not applicable or unspecified; O99.52 Diseases of the respiratory system complicating childbirth; J45.909 Unspecified asthma, uncomplicated; Z79.899 Other long term (current) drug therapy; Z3A.41 41 weeks gestation of pregnancy
CPT/HCPCS: 59025; 59050; 85025; 86850; 86900; 86901; 99218; J7120; A4216; G0378

== ENCOUNTER → 2019-07-16 10:49 | Outpatient (CLI) | payer BC, SELFPAY ==
[2019-07-16 10:23] VITALS: BMI 30.7
[2019-07-16 11:26] LABS: T4 Free Direct 0.81 ng/dL (0.76-1.46); Thyroid Stim Hormone (TSH) 1.83 uIU/mL (0.358-3.74)
== END ==
PROVIDERS: PCP Nurse Practitioner Family; Referring Provider Obstetrics & Gynecology; Visit Provider Obstetrics & Gynecology
DX: E01.0 Iodine-deficiency related diffuse (endemic) goiter (principal)
CPT/HCPCS: 36415; 84439; 84443

== ENCOUNTER → 2019-08-01 11:47 | Outpatient (CLI) | payer BC, SELFPAY ==
[2019-07-16 10:23] VITALS: BMI 30.7
--- NOTE | 2019-08-01 11:49 | US_ITS ---
STUDY: THYROID ULTRASOUND REASON FOR EXAM: Female, 34 years old. THYROMEGALY FELT BY DOCTOR TECHNIQUE: Ultrasound evaluation of the thyroid was performed with real-time and static rojas-scale imaging. COMPARISON: None. FINDINGS: RIGHT LOBE: The right lobe of the thyroid gland measures 5 cm x 1.6 cm x 1.1 cm. There is a homogeneous echotexture. There are no demonstrated solid, cystic or complex lesions. LEFT LOBE: The left lobe of the thyroid gland measures 4.4 cm x 1.7 cm x 0.9 cm. There is a homogeneous echotexture. There are no demonstrated solid, cystic or complex lesions. ISTHMUS: The isthmus measures 2.0 mm. The regional lymph nodes are normal. US/Thyroid IMPRESSION: Normal ultrasound examination of the thyroid. Electronically Signed: Dario Alanis, at 14:23 EDT , Service support ,
== END ==
PROVIDERS: PCP Nurse Practitioner Family; Referring Provider Obstetrics & Gynecology; Visit Provider Obstetrics & Gynecology
DX: E01.0 Iodine-deficiency related diffuse (endemic) goiter (principal)
CPT/HCPCS: 76536

== ENCOUNTER → 2020-11-22 08:58 | Outpatient (CLI) | payer BC, SELFPAY ==
[2020-11-22 09:40] LABS: Thyroid Stim Hormone (TSH) 1.91 uIU/mL (0.358-3.74)
== END ==
PROVIDERS: PCP Nurse Practitioner Family; Referring Provider Obstetrics & Gynecology; Visit Provider Obstetrics & Gynecology
DX: N93.9 Abnormal uterine and vaginal bleeding, unspecified (principal)
CPT/HCPCS: 36415; 84443

== ENCOUNTER → 2020-12-01 12:54 | Outpatient (CLI) | payer BC, SELFPAY ==
--- NOTE | 2020-12-01 13:03 | US_ITS ---
STUDY: ULTRASOUND OF THE FEMALE PELVIS - COMPLETE REASON FOR EXAM: Female, 35 years old. Abnormal uterine bleeding. Very light and frequent periods. Patient on oral contraceptives. LMP: Unknown. TECHNIQUE: Transabdominal and Transvaginal TECHNICAL QUALITY: Adequate. COMPARISON: None. FINDINGS: The uterus is anteverted and retroflexed and is in a midline position. The uterus measures 9.1 x 4.7 x 3.9 cm. There is a Nabothian cyst of the cervix. The endometrium measures 7 mm mm in thickness, and is fluid-filled. Calcifications are seen along the endometrial lining. There is no demonstrated endometrial mass. There is no demonstrated myometrial mass. I.U.D. - The patient does not have an I.U.D. The right ovary is visualized. The right ovary measures 2.0 x 2.5 x 2.1 cm. There are multiple follicles of the right ovary without a dominant cyst. There is no visualized right adnexal mass or complex lesion. There is normal arterial and normal venous vascularity. The left ovary is visualized. The left ovary measures 2.6 x 2.7 x 1 point cm. There are multiple follicles of the left ovary without a dominant cyst. There is no visualized left adnexal mass or complex lesion. There is normal arterial and normal venous vascularity. There is no fluid in the cul-de-sac. The urinary bladder is grossly normal. It had a prevoid volume of 630 mL. Polycystic ovary disease: No. US/Transvaginal Non- IMPRESSION: 1. Fluid within the endometrial canal with scattered endometrial calcifications. 2. Normal ovaries. Electronically Signed: Santosh Narayanan DO at 16:43 EDT Tel [phone], Service support ,
--- NOTE | 2020-12-01 13:03 | US_ITS ---
STUDY: ULTRASOUND OF THE FEMALE PELVIS - COMPLETE REASON FOR EXAM: Female, 35 years old. Abnormal uterine bleeding. Very light and frequent periods. Patient on oral contraceptives. LMP: Unknown. TECHNIQUE: Transabdominal and Transvaginal TECHNICAL QUALITY: Adequate. COMPARISON: None. FINDINGS: The uterus is anteverted and retroflexed and is in a midline position. The uterus measures 9.1 x 4.7 x 3.9 cm. There is a Nabothian cyst of the cervix. The endometrium measures 7 mm mm in thickness, and is fluid-filled. Calcifications are seen along the endometrial lining. There is no demonstrated endometrial mass. There is no demonstrated myometrial mass. I.U.D. - The patient does not have an I.U.D. The right ovary is visualized. The right ovary measures 2.0 x 2.5 x 2.1 cm. There are multiple follicles of the right ovary without a dominant cyst. There is no visualized right adnexal mass or complex lesion. There is normal arterial and normal venous vascularity. The left ovary is visualized. The left ovary measures 2.6 x 2.7 x 1 point cm. There are multiple follicles of the left ovary without a dominant cyst. There is no visualized left adnexal mass or complex lesion. There is normal arterial and normal venous vascularity. There is no fluid in the cul-de-sac. The urinary bladder is grossly normal. It had a prevoid volume of 630 mL. Polycystic ovary disease: No. US/Pelvic (Non ) IMPRESSION: 1. Fluid within the endometrial canal with scattered endometrial calcifications. 2. Normal ovaries. Electronically Signed: Santosh Narayanan DO at 16:43 EDT Tel [phone], Service support ,
== END ==
PROVIDERS: PCP Nurse Practitioner Family; Referring Provider Obstetrics & Gynecology; Visit Provider Obstetrics & Gynecology
DX: N93.9 Abnormal uterine and vaginal bleeding, unspecified (principal)
CPT/HCPCS: 76830; 76856

== ENCOUNTER → 2021-07-25 | Outpatient (CLI) | payer BC, SELFPAY ==
[2021-07-25 16:37] LABS: T4 Free Direct 0.88 ng/dL (0.76-1.46); Thyroid Stim Hormone (TSH) 1.32 uIU/mL (0.358-3.74)
== END | disposition home or self-care (01) ==
LOC: PAVLAB 15:27
PROVIDERS: PCP Nurse Practitioner Family; Referring Provider Obstetrics & Gynecology; Visit Provider Obstetrics & Gynecology
DX: E01.0 Iodine-deficiency related diffuse (endemic) goiter (principal)
CPT/HCPCS: 36415; 84439; 84443

== ENCOUNTER → 2021-08-04 | Outpatient (CLI) | payer BC, SELFPAY ==
--- NOTE | 2021-08-04 11:33 | US_ITS ---
STUDY: THYROID ULTRASOUND REASON FOR EXAM: Female, 36 years old. Palpably enlarged thyroid TECHNIQUE: Ultrasound evaluation of the thyroid was performed with real-time and static rojas-scale imaging. COMPARISON: 08/01/2019 FINDINGS: RIGHT LOBE: The right lobe of the thyroid gland measures 4.9 x 1.4 x 1.1 cm. There is a homogeneous echotexture. There are no demonstrated solid, cystic or complex lesions. LEFT LOBE: The left lobe of the thyroid gland measures 3.8 x 1.3 x 0.9 cm. There is a homogeneous echotexture. There are no demonstrated solid, cystic or complex lesions. ISTHMUS: The isthmus measures 2 mm. The regional lymph nodes are normal. US/Thyroid IMPRESSION: Mildly enlarged right lobe of the thyroid, no discrete lesion. No significant interval change Electronically Signed: Moshe Cleary MD at 10:08 EDT ,
== END | disposition home or self-care (01) ==
LOC: US 11:32
PROVIDERS: PCP Nurse Practitioner Family; Referring Provider Obstetrics & Gynecology; Visit Provider Obstetrics & Gynecology
DX: E01.0 Iodine-deficiency related diffuse (endemic) goiter (principal)
CPT/HCPCS: 76536

== ENCOUNTER → 2022-03-24 | Outpatient (CLI) | payer SELFPAY, BC ==
--- NOTE | 2022-03-24 08:05 | US_ITS ---
STUDY: ULTRASOUND OF THE FEMALE PELVIS - COMPLETE REASON FOR EXAM: Female, 36 years old. Pelvic pain. LMP: 03/03/2022. TECHNIQUE: Transabdominal and Transvaginal TECHNICAL QUALITY: Adequate. COMPARISON: Comparison is made with prior study dated 12/01/2020. FINDINGS: The uterus is anteverted and is in a midline position. The uterus measures 12.1 cm x 4.9 cm x 3.1 cm. There is a Nabothian cyst of the cervix. The endometrium measures 6 mm in thickness, and is hyperechoic. There is no demonstrated endometrial mass. Small amount of fluid is seen within the cervix. There is no demonstrated myometrial mass. I.U.D. - The patient does not have an I.U.D. The right ovary is visualized. The right ovary measures 1.8 cm x 1.1 cm x 1.5 cm. There is no right ovarian cyst or ovarian mass. There is no visualized right adnexal mass or complex lesion. There is normal arterial and normal venous vascularity. The left ovary is visualized. The left ovary measures 2.3 cm x 3.8 cm x 1.6 cm. A small follicle is seen within the ovary. There is no visualized left adnexal mass or complex lesion. There is normal arterial and normal venous vascularity. There is no fluid in the cul-de-sac. The pre void volume of the bladder was 416 ml. Polycystic ovary disease: No. US/Pelvic (Non ) IMPRESSION: Mild enlargement of the uterus. Small amount of endocervical fluid. Electronically Signed: Dario Alanis MD at 13:40 EST ,
== END | disposition home or self-care (01) ==
PROVIDERS: PCP Nurse Practitioner Family; Referring Provider Nurse Practitioner Women's Health; Visit Provider Nurse Practitioner Women's Health
DX: R10.2 Pelvic and perineal pain (principal)
CPT/HCPCS: 76830; 76856

== ENCOUNTER → 2022-08-01 | Outpatient (CLI) | payer BC, SELFPAY ==
[2022-08-01 12:18] LABS: Free T3 2.3 pg/mL (2.18-3.98); T4 Free Direct 0.91 ng/dL (0.76-1.46)
== END | disposition home or self-care (01) ==
PROVIDERS: PCP Nurse Practitioner Family; Referring Provider Obstetrics & Gynecology; Visit Provider Obstetrics & Gynecology
DX: E01.0 Iodine-deficiency related diffuse (endemic) goiter (principal)
CPT/HCPCS: 36415; 84439; 84481

== ENCOUNTER → 2022-08-02 | Outpatient (CLI) | payer BC, SELFPAY ==
[2022-08-04 08:12] LABS: Thyroid Peroxidase AB 15 IU/mL (0-34)
== END | disposition home or self-care (01) ==
LOC: LAB 16:11
PROVIDERS: PCP Nurse Practitioner Family; Referring Provider Obstetrics & Gynecology; Visit Provider Obstetrics & Gynecology
DX: E01.0 Iodine-deficiency related diffuse (endemic) goiter (principal)
CPT/HCPCS: 36415; 86376

== ENCOUNTER → 2022-08-04 | Outpatient (CLI) | payer BC, SELFPAY ==
--- NOTE | 2022-08-04 16:54 | US_ITS ---
INDICATION: thyromegaly EXAMINATION: Ultrasound US Thyroid (eg thyroid, parathyroid, parotid) TECHNIQUE: Hill scale and color doppler imaging was performed of the thyroid gland. COMPARISON: None. FINDINGS: RIGHT THYROID LOBE: 5.1 x 0.9 x 1.5 cm. Homogeneous echotexture with normal vascularity. [No thyroid nodules are present. LEFT THYROID LOBE: 4.8 x 0.6 x 1.2 cm. Homogeneous echotexture with normal vascularity. [No thyroid nodules are present. ISTHMUS: 0.2 cm. No thyroid nodules are present. US/Thyroid IMPRESSION: Enlarged thyroid gland. Electronically Signed: Lesly Gonzalez MD at 16:12 EDT ,
== END | disposition home or self-care (01) ==
PROVIDERS: PCP Family Medicine; Referring Provider Obstetrics & Gynecology; Visit Provider Obstetrics & Gynecology
DX: E01.0 Iodine-deficiency related diffuse (endemic) goiter (principal)
CPT/HCPCS: 76536

== ENCOUNTER → 2023-08-03 | Outpatient (CLI) | payer BC, SELFPAY | END | disposition home or self-care (01) | LOC: LABSPEC 16:59 | PROVIDERS: PCP Family Medicine; Referring Provider Obstetrics & Gynecology; Visit Provider Obstetrics & Gynecology | DX: Z12.4 Encounter for screening for malignant neoplasm of cervix (principal) | CPT/HCPCS: 87624; 88175; G0145 ==